=== PATIENT | male | born 1975 | race Caucasian/White ===

== ENCOUNTER 2021-07-12 14:09 | Inpatient (IN) | payer MEDICAID, SELFPAY ==
[2021-07-12] VITALS (17 sets, daily range): BP systolic 103–145; BP diastolic 55–94; PULSE 78–110; RESP 16–26; TEMP 36–37.2; O2SAT 98–100; BMI 17.2
--- NOTE | 2021-07-12 14:25 | EKG12_ITS ---
Test Reason : ALT LOC Blood Pressure : / mmHG Vent. Rate : 090 BPM Atrial Rate : 090 BPM P-R Int : 132 ms QRS Dur : 090 ms QT Int : 348 ms P-R-T Axes : 082 072 -45 degrees QTc Int : 425 ms Normal sinus rhythm Biatrial enlargement Left ventricular hypertrophy with repolarization abnormality nonspecific ST-T wave abnormality Abnormal ECG Confirmed by SG NOBLE, VINNY ([id number]), editorial director GEE HERRON ([id number]) on 07/15/2021 10:45:02 AM Referred By: SOHAIL/ANTONELLA Confirmed By:VINNY BETTENCOURT MD
[2021-07-12 14:26] LABS: Bedside Glucose > 500 mg/dL (74-106)
--- NOTE | 2021-07-12 14:28 | EDS_ITS ---
HPI <LEIGH Frost - Last Filed: 07/12/21 16:52> History of Present Illness Chief Complaint: Alt LOC Narrative Narrative: 45-year-old male with history of hypertension, diabetes, long history of multisubstance abuse. He came home to his parents house 2 days ago, patient has been using opiate injectables over the last several months. Patient was unresponsive at home, during the last day, he has been unable to eat, drink at home, both him and his stepfather, and mother are here with him to receive detox. Patient states that he is unsure when the last time he checked his sugar, he is unsure when the last time he took his insulin. Patient denies any fevers or chills. Patient states he has pain all over. [facility] <LEIGH Frost - Last Filed: 07/12/21 16:52> [facility] Medical History (Updated 07/12/21 @ 16:[address] Abran Mederos, DO) Diabetes Allergy/AdvReac Type Severity Reaction Status Date / Time No Known Allergies Allergy Verified 07/12/21 14:13 Social History Smoking Status: Current every day smoker tobacco type: cigarettes ROS <LEIGH Frost - Last Filed: 07/12/21 16:52> ROS ED ROS Narrative Constitutional: Negative for fever, chills, weight loss or gain. Positive lethargic, weakness Eyes: Negative for vision loss, vision change, double vision ENT: Negative for any hearing changes, ringing in the ears, discharge, pain Nose: Negative for any congestion, runny nose, sinus pain, allergies Throat: Negative for any sore throat, swelling, voice changes, Cardiovascular: Negative for any chest pain, tightness, palpitations, racing heartbeat Respiratory: Negative for any cough, sputum production, hemoptysis, shortness of breath, shortness of breath on exertion, Gastrointestinal: Negative for any, nausea, vomiting, diarrhea, constipation, blood in stool, blood in vomit. Positive for abdominal cramping : Negative for any urinary frequency, incontinence, dysuria, retention, blood in urine Muscle skeletal: Negative for any muscle joint pain, stiffness, arthralgias, neck pain, back pain. Positive for generalized malaise, myalgia Neurological: Negative for any headache, dizziness, syncope, numbness or tingling Skin: Negative for any rashes, lumps, itching, abrasions, lacerations Psychiatric: Negative for any depression, anxiety, stress, suicidal ideation, homicidal ideation Hematologic: Negative for any easy bruising, excessive bruising, easy bleeding Allergies: Negative for any eczema, hives, rash EXAM <LEIGH Frost - Last Filed: 07/12/21 16:52> Physical Exam Const Vital Signs: 07/12/21 14:10 07/12/21 15:46 07/12/21 16:32 Temperature 97.5 F L Temperature Source Temporal Pulse Rate 91 88 78 Respiratory Rate 16 18 18 Blood Pressure 109/55 L 107/66 Blood Pressure Mean 73 79 Pulse Ox 100 99 98 Oxygen Delivery Method Room Air Room Air Room Air Positive cachectic and unkempt General Appearance ED: unkempt and cachectic Nutritional Appearance: cachectic HEENT Reports dry mucous membranes Mouth ED: Yes dry mucous membranes Mouth: dry mucous membranes Eyes PERRL and EOMs intact bilaterally General Eye ED: Yes pale conjunctiva Neck no lymphadenopathy and supple Chest Wall inspection of chest normal and palpation of chest normal Resp normal respiratory effort and clear to auscultation bilaterally GI normal to inspection, nondistended, normoactive bowel sounds, non-tender and non-distended Auscultation: normoactive bowel sounds Palpation: soft Back/Spine no CVA tenderness Extremity normal to inspection Neuro CN's II-XII intact bilaterally Sensorium / Orientation: alert and lethargic Psych mental status grossly normal Appearance: unkempt <Dr. Abran Mederos DO - Last Filed: 07/12/21 16:26> Physical Exam Const Vital Signs: 07/12/21 14:10 07/12/21 15:46 07/12/21 16:32 Temperature 97.5 F L Temperature Source Temporal Pulse Rate 91 88 78 Respiratory Rate 16 18 18 Blood Pressure 109/55 L 107/66 Blood Pressure Mean 73 79 Pulse Ox 100 99 98 Oxygen Delivery Method Room Air Room Air Room Air MDM <LEIGH Frost - Last Filed: 07/12/21 16:52> [facility] MDM Narrative Medical decision making narrative: Patient arrives to the emergency department wanting detox from opiates, as well as lethargic. Patient upon initial examination I was able small ketones. Patient received a DKA work-up due to the patient being diabetic, not taking any insulin, and reading high on the meter. Patient's CBC shows a leukocytosis with a white blood count 26.3, patient's chemistries had multiple abnormal lab values. Patient sodium was 118, patient potassium was unremarkable. Patient's anion gap was 33 with a BUN of 127, creatinine 2.5. Patient's glucose was 1258. Patient was given 2 L of fluid, insulin drip. Patient is a to give a urine. I did speak with the hospitalist, the patient be admitted to the ICU. Patient be admitted with diabetic ketoacidosis, opiate abuse, acute kidney injury, hyponatremia. Lab Data Labs: Laboratory Results - last 24 hr 07/12/21 07/12/21 07/12/21 14:22 15:25 15:25 WBC 26.3 H RBC 4.91 Hgb 14.2 Hct 41.2 MCV 83.9 MCH 28.9 MCHC 34.5 RDW Std Deviation 40.0 RDW Coeff of Eric 13.2 Plt Count 338 MPV 10.3 Immature Gran % (Auto) 1.800 H Neut % (Auto) 84.2 H Lymph % (Auto) 7.0 L [place] % (Auto) 6.8 Eos % (Auto) 0.0 Baso % (Auto) 0.2 Absolute Neuts (auto) 22.2 H Absolute Lymphs (auto) 1.85 Nucleated RBC % 0 Differential Comment SCANNED Diff Path Review May foll Sodium 118 L* Potassium 4.5 Chloride 78 L Carbon Dioxide 7.0 L* Anion Gap 33 H BUN 127 H* Creatinine 2.51 H Estim Creat Clear Calc 26.50 Est GFR (MDRD) Af Amer 36 L Est GFR (MDRD) Non-Af 30 L BUN/Creatinine Ratio 50.6 H Glucose 1258 H* Lactic Acid Calcium 9.3 Acetone Level POC Glucose > 500 H* 07/12/21 07/12/21 15:25 15:25 WBC RBC Hgb Hct MCV MCH MCHC RDW Std Deviation RDW Coeff of Eric Plt Count MPV Immature Gran % (Auto) Neut % (Auto) Lymph % (Auto) [place] % (Auto) Eos % (Auto) Baso % (Auto) Absolute Neuts (auto) Absolute Lymphs (auto) Nucleated RBC % Differential Comment Diff Path Review Sodium Potassium Chloride Carbon Dioxide Anion Gap BUN Creatinine Estim Creat Clear Calc Est GFR (MDRD) Af Amer Est GFR (MDRD) Non-Af BUN/Creatinine Ratio Glucose Lactic Acid 2.0 Calcium Acetone Level LARGE H POC Glucose ABG Data ABG results: ABG 07/12/21 15:37 Specimen Type CESAR Sample Site Central Line VBG pH 7.06 L* VBG pO2 50 H VBG HCO3 6 L VBG Total CO2 7 L VBG O2 Sat (Calc) 69 VBG Base Excess -25 L POC Mix VBG pCO2 Pt Tmp 20.9 L O2 Delivery Device Room Air Crit Call To/Read Back Yes Blood Gas Notified Whom Marium Blood Gas Notified Time 15:38:49 Radiography Diagnostic Testing: Clinical Impression(s) from Imaging Studies Chest X-Ray 07/12/21 15:26 IMPRESSION: Right subclavian vein catheter coiled on itself at the level of the interest of the thoracic cage. Tip in the mid to distal SVC. No acute cardiopulmonary process. Electronically Signed: Yobani Atkinson MD at 16:11 EDT , Chest x-ray shows a right subclavian vein catheter coiled on itself at the level of the interest of the thoracic cage. Tip of the mid to the distal SVC. <Dr. Abran Mederos, DO - Last Filed: 07/12/21 16:26> [facility] Narrative Medical decision making narrative: I have personally performed a face to face assessment of the patient and have reviewed the INGRID Note. I performed a substantive portion of the visit including all aspects of the following. My pitts findings include: History is [patient presents to the emergency department with his mother with complaint of of not feeling well for at least a week. Patient abuses opiates via the IV route. Patient has been without his diabetic medications and has not taken them for about a week. Patient has been vomiting for some time. He denies any fever or cough or chest pain. He denies any abdominal pain.] Exam is [HEENT-PERRLA, EOMI. Cranial nerves II through XII grossly intact. TMs clear. Mucous membranes dry. No adenopathy. Cardiovascular-regular rate and rhythm without murmur or ectopy Lungs-clear to auscultation, chest wall stable without crepitus or subcu emphysema Abdomen-normoactive bowel sounds, soft, nontender, no rebound or rigidity, no peritoneal signs. Extremities-intact ?4, normal range of motion, normal pulses, atraumatic. Patient has multiple track forbes to the upper extremities.] Medical Decison Making [patient noted to be in DKA with acute kidney injury. Patient was a difficult IV stick and had to have a central line placed to the subclavian area on the right. Patient was ordered 2 L of fluid and started on an insulin drip. Case will be discussed with hospitalist evaluate patient for admission] Other additions or changes: [None] Lab Data Attestation: I reviewed the patient's lab results. Labs: Laboratory Results - last 24 hr 07/12/21 07/12/21 07/12/21 14:22 15:25 15:25 WBC 26.3 H RBC 4.91 Hgb 14.2 Hct 41.2 MCV 83.9 MCH 28.9 MCHC 34.5 RDW Std Deviation 40.0 RDW Coeff of Eric 13.2 Plt Count 338 MPV 10.3 Immature Gran % (Auto) 1.800 H Neut % (Auto) 84.2 H Lymph % (Auto) 7.0 L [place] % (Auto) 6.8 Eos % (Auto) 0.0 Baso % (Auto) 0.2 Absolute Neuts (auto) 22.2 H Absolute Lymphs (auto) 1.85 Nucleated RBC % 0 Differential Comment SCANNED Diff Path Review May foll Sodium 118 L* Potassium 4.5 Chloride 78 L Carbon Dioxide 7.0 L* Anion Gap 33 H BUN 127 H* Creatinine 2.51 H Estim Creat Clear Calc 26.50 Est GFR (MDRD) Af Amer 36 L Est GFR (MDRD) Non-Af 30 L BUN/Creatinine Ratio 50.6 H Glucose 1258 H* Lactic Acid Calcium 9.3 Acetone Level POC Glucose > 500 H* 07/12/21 07/12/21 15:25 15:25 WBC RBC Hgb Hct MCV MCH MCHC RDW Std Deviation RDW Coeff of Eric Plt Count MPV Immature Gran % (Auto) Neut % (Auto) Lymph % (Auto) [place] % (Auto) Eos % (Auto) Baso % (Auto) Absolute Neuts (auto) Absolute Lymphs (auto) Nucleated RBC % Differential Comment Diff Path Review Sodium Potassium Chloride Carbon Dioxide Anion Gap BUN Creatinine Estim Creat Clear Calc Est GFR (MDRD) Af Amer Est GFR (MDRD) Non-Af BUN/Creatinine Ratio Glucose Lactic Acid 2.0 Calcium Acetone Level LARGE H POC Glucose ABG Data ABG results: ABG 07/12/21 15:37 Specimen Type CESAR Sample Site Central Line VBG pH 7.06 L* VBG pO2 50 H VBG HCO3 6 L VBG Total CO2 7 L VBG O2 Sat (Calc) 69 VBG Base Excess -25 L POC Mix VBG pCO2 Pt Tmp 20.9 L O2 Delivery Device Room Air Crit Call To/Read Back Yes Blood Gas Notified Whom Marium Blood Gas Notified Time 15:38:49 Radiography Chest X-Ray - ED: 1 View Diagnostic Testing: Clinical Impression(s) from Imaging Studies Chest X-Ray 07/12/21 15:26 IMPRESSION: Right subclavian vein catheter coiled on itself at the level of the interest of the thoracic cage. Tip in the mid to distal SVC. No acute cardiopulmonary process. Electronically Signed: Yobani Atkinson MD at 16:11 EDT , 1 view chest x-ray obtained interpreted by myself as central line placement in good position in the superior vena cava without evidence of pneumothorax. Radiology agreed. <Dr. Abran Mederos, DO - Last Filed: 07/12/21 16:26> Other Procedures Procedure(s): Central line placement-initially attempted central line placement to the right groin however unable to advance the wire into the vein despite several attempts. Decision was made then to place a subclavian line. Area of the right subclavian was sterilely draped and prepped. Area cleansed with chlorhexidine prep. Area anesthetized with 1% lidocaine total of 4 cc. Needle was advanced into the right subclavian with good blood return. I was able to pass the guidewire through the needle and removed the needle. A small skin sandy was made with an 11 blade and dilator was used to dilate the subcutaneous tissues. The central line was then passed into the subclavian. Line was sutured in the place. All ports were flushed with heparin and good return all ports. Chest x-ray was obtained and showed good position of the central line in the superior vena cava and incidentally was noted a curling of the initial portion of the central line. <Dr. Abran Mederos, DO - Last Filed: 07/12/21 16:26> Critical Care Time Critical care time (excluding procedures): Including time spent:, Discussing w/Patient &/or Family/Remote Broadcast Engineer, Discussing w/Consultants, Arranging Admission or Transfer, Performing Direct Patient Care at Bedside and - (45 minutes) Discharge Plan Dx/Rx/DC Orders Clinical Impression: DKA (diabetic ketoacidosis), Acute kidney injury, Dehydration, Opiate abuse, continuous Disposition Disposition: Acute Care [facility]
--- NOTE | 2021-07-12 15:26 | RAD_ITS ---
STUDY: X-RAY CHEST REASON FOR EXAM: Male, 45 years old. shortness of breath TECHNIQUE: 1 view COMPARISON: None. FINDINGS: Right-sided subclavian vein catheter appears coiled on itself at the level of the entrance to the thoracic cage. Tip in the mid to distal SVC. Cardiomediastinal silhouette is unremarkable. Costophrenic angles are sharp. Lungs are clear. The trachea is midline. There is no pneumothorax. The bones are grossly intact. RAD/CXR for Line Placement IMPRESSION: Right subclavian vein catheter coiled on itself at the level of the interest of the thoracic cage. Tip in the mid to distal SVC. No acute cardiopulmonary process. Electronically Signed: Yobani Atkinson MD at 16:11 EDT ,
[2021-07-12] MEDS: 0.9% Normal Saline 1,000 ML 999 ML IV ×3 (15:38→17:23)
[2021-07-12 15:46] LABS: Blood Gas Specimen Type VEN; O2 Delivery Device Room Air; SITE Central Line; VBG BASE EXCESS -25 mmol/L (-1.0-3.5); VBG Bicarbonate 6 mmol/L (22-26); VBG PO2 50 mmHg (25-40); VBG SO2 69 % (50-70); VBG TCO2 7 mmol/L (23-33); VBG pCO2 20.9 mmHg (41-51); VBG pH 7.06 (7.32-7.42)
[2021-07-12 15:46] LABS: Absolute Lymphocyte Count 1.85 X10^3/uL (0.83-4.51); Absolute Neutrophil Count 22.2 X10^3/uL (2.0-7.7); Basophil# 0.06 X10^3/uL; Basophil% 0.2 % (0-1); Hematocrit 41.2 % (40-54); Hemoglobin 14.2 g/dL (13.0-16.5); Lymphocyte # 1.85 X10^3/ul (0.83-4.51); Mean Corp Hgb Conc 34.5 g/dL (32-36); Mean Corpuscular Hgb 28.9 pg (27.0-32.0); Mean Corpuscular Volume 83.9 fL (80-94); Mean Platelet Vol. 10.3 fl (6.2-12.0); Monocyte# 1.78 X10^3/uL; Monocyte% 6.8 % (0-10); NRBC Flagged by Analyzer 0 % (0-5); Neutrophil # 22.17 X10^3/uL (2.7-7.7); Neutrophil % 84.2 % (47-70); POSITIVE DIFFERENTIAL YES; Platelet Count 338 K/mm3 (150-450); RBC Distribution Width CV 13.2 % (11.6-14.6); Red Blood Count 4.91 M/mm3 (4.6-6.2); White Blood Count 26.3 K/mm3 (4.4-11.0)
[2021-07-12 15:50] LABS: Differential Indicated SCAN CRITERIA MET
[2021-07-12 16:08] LABS: Anion Gap 33 (5-15); BUN 127 mg/dL (7-18); BUN/Creat Ratio 50.6 RATIO (10-20); Calcium,Total 9.3 mg/dL (8.5-10.1); Chloride 78 mmol/L (98-107); Creatinine, Serum 2.51 mg/dL (0.70-1.30); EST Glomerular Filtration Rate 30 mL/min (>60); Est Glom Filt Rate - Afr Amer 36 mL/min (>60); Glucose 1258 mg/dL (74-106); Potassium 4.5 mmol/L (3.5-5.1); Sodium Level 118 mmol/L (136-145)
[2021-07-12 16:22] LABS: Differential Comment SCANNED
--- NOTE | 2021-07-12 16:45 | ED.RN ---
Nuha, Charge Nurse at bedside to attempt for peripheral IV. Nuha was unsuccessful x2 due to patients hx of IV drug use. MD Gatito at bedside attempt for IJ placement was also unsuccessful x2 attempts. Central line insertion tray set up for Dr. Mederos. Verbal consent obtain from patient prior to procedure.
--- NOTE | 2021-07-12 16:48 | PCM.HP.STD ---
HPI - General General Date of Admission: 07/12/21 Date of Service: 07/12/21 Chief Complaint: unresponsive HPI Narrative ROBSON MORE, is a 45 M who presents presents after being unresponsive. Patient went to his parents home and has not been able to eat or drink and patient presented to the emergency room. Patient was found to be in diabetic ketoacidosis with a glucose of 1258, anion gap of 33, carbon dioxide of 7. Creatinine was elevated 2.71 and sodium was down to 118. Patient was started on insulin drip time the time of my arrival. Patient is a poor historian states that he has not taken his insulin for days. He states that he is a type I diabetic but had some hesitancy in regards to answering that. Patient's mother is at bedside and she states that he was never diabetic is a child living with her. Patient uses heroin and fentanyl and shoots up. His last use was a couple days ago. He is requesting detoxification. [facility] Medical History (Updated 07/12/21 @ 16:[address] Jose Ramon Hunt DO) Diabetes Diabetes mellitus type 1 Hepatitis C HTN (hypertension) Opiate abuse, continuous Allergy/AdvReac Type Severity Reaction Status Date / Time No Known Allergies Allergy Verified 07/12/21 14:13 Family History (Updated 07/12/21 @ 16:[address] Jose Ramon Hunt DO) Other Diabetes Social History (Updated 07/12/21 @ 16:[address] Jose Ramon Hunt DO) Smoking Status: Current every day smoker tobacco type: cigarettes substance use type: marijuana and heroin ROS ROS Narrative Nausea, vomiting. Decreased oral intake. Weight loss but unclear quantity of weight. Lesions on skin from injection sites. All review of systems were negative except as mentioned above in the history of present illness and the other review of systems. Vital Signs Vital Signs Vital Signs: 07/12/21 14:10 07/12/21 15:46 07/12/21 16:32 Temperature 36.4 C L Temperature Source Temporal Pulse Rate 91 88 78 Respiratory Rate 16 18 18 Blood Pressure 109/55 L 107/66 Blood Pressure Mean 73 79 Pulse Ox 100 99 98 Oxygen Delivery Method Room Air Room Air Room Air Weight Weight: 49.895 kg Body Mass Index (BMI) 17.2 Physical Exam Const Constitutional Narrative: Awake and alert. Does have some slurred speech which made it difficult to understand at times. Gaunt appearance HEENT HEENT Narrative: Temporal wasting. Mucous membranes dry. Neck no lymphadenopathy Resp normal respiratory effort, no retractions, no use of accessory muscles and clear to auscultation bilaterally Cardio regular rate, regular rhythm, S1 normal heart sound and S2 normal heart sound GI normal to inspection, nondistended, normoactive bowel sounds, soft to palpation, non-tender, non-distended and hepatosplenomegaly Extremity normal to inspection Extremity Narrative: Muscle wasting lower extremities. Skin no rashes or lesions noted Neuro Sensorium / Orientation: awake and alert Psych affect normal Results Lab / Micro Data Result Diagrams: 07/12/21 15:25 07/12/21 15:25 Labs: Laboratory Results - last 24 hr 07/12/21 14:22: POC Glucose > 500 H* 07/12/21 15:25: WBC 26.3 H, RBC 4.91, Hgb 14.2, Hct 41.2, MCV 83.9, MCH 28.9, MCHC 34.5, RDW Std Deviation 40.0, RDW Coeff of Eric 13.2, Plt Count 338, MPV 10.3, Immature Gran % (Auto) 1.800 H, Neut % (Auto) 84.2 H, Lymph % (Auto) 7.0 L, [place] % (Auto) 6.8, Eos % (Auto) 0.0, Baso % (Auto) 0.2, Absolute Neuts (auto) 22.2 H, Absolute Lymphs (auto) 1.85, Nucleated RBC % 0, Differential Comment SCANNED, Diff Path Review August foll 07/12/21 15:25: Sodium 118 L*, Potassium 4.5, Chloride 78 L, Carbon Dioxide 7.0 L*, Anion Gap 33 H, BUN 127 H*, Creatinine 2.51 H, Estim Creat Clear Calc 26.50, Est GFR (MDRD) Af Amer 36 L, Est GFR (MDRD) Non-Af 30 L, BUN/Creatinine Ratio 50.6 H, Glucose 1258 H*, Calcium 9.3 07/12/21 15:25: Acetone Level LARGE H 07/12/21 15:25: Lactic Acid 2.0 ABG Data ABG results: ABG 07/12/21 15:37 Specimen Type CESAR Sample Site Central Line VBG pH 7.06 L* VBG pO2 50 H VBG HCO3 6 L VBG Total CO2 7 L VBG O2 Sat (Calc) 69 VBG Base Excess -25 L POC Mix VBG pCO2 Pt Tmp 20.9 L O2 Delivery Device Room Air Crit Call To/Read Back Yes Blood Gas Notified Whom Marium Blood Gas Notified Time 15:38:49 EKG Initial EKG: Attestation: I personally reviewed and interpreted this EKG as follows: Prior EKG tracings: available for review EKG Rhythm Intrepretation: Sinus Rhythm Radiology Impression Chest X-Ray 07/12/21 15:26 IMPRESSION: Right subclavian vein catheter coiled on itself at the level of the interest of the thoracic cage. Tip in the mid to distal SVC. No acute cardiopulmonary process. Electronically Signed: Yobani Atkinson MD at 16:11 EDT , Assessment & Plan Assessment/Plan (1) DKA (diabetic ketoacidosis): QUALIFIERS: Diabetes mellitus type: type 1 Diabetes mellitus complication detail: without coma Qualified Code(s): E10.10 - Type 1 diabetes mellitus with ketoacidosis without coma (2) Acute kidney injury: (3) Hyponatremia: (4) Leukocytosis: QUALIFIERS: Leukocytosis type: unspecified Qualified Code(s): D72.829 - Elevated white blood cell count, unspecified (5) Opiate withdrawal: PLAN: 1. Diabetic ketoacidosis Patient reports as being a type I diabetic but he is not the most reliable historian at this time. To diabetic but does take insulin. Patient has not taken insulin for unclear period of time. Patient will be on insulin drip as well as IV fluids. NPO. Serial BMPs. Discontinue the insulin drip once anion gap is been closed x2. 2. Acute kidney injury Likely prerenal IV fluids Avoid nephrotoxic agents. 3. Leukocytosis May be reactive due to DKA as well opiate withdrawal Monitor No sign of infection We will check urinalysis and urine culture 4. Hyponatremia Likely pseudohyponatremia due to severe hyperglycemia Treat the underlying process and monitor. 5. Acute opiate withdrawal Patient is requesting opiate withdrawal treatment. Patient has been established with a program called [facility] by [facility], where he is from Patient's mother states that he will not be returning to their once he is discharged. Enforced the patient denies any active participant in regards to obtaining sobriety. Going to programs for discharge. 6. VTE prophylaxis with enoxaparin 7. COVID-19 vaccination status: Patient is unvaccinated 12 patient decides, could have the vaccine while he is here but let us know. Discussed with the patient's mother and stepfather at bedside with the patient's permission. All question questions were answered. Charges/Coding Visit Charges Inpatient E&M: 14743 Init Hosp L3
[2021-07-12 17:01] LABS: Magnesium 3.4 mg/dL (1.6-2.6)
[2021-07-12 18:04] LABS: Anion Gap 24 (5-15); BUN 109 mg/dL (7-18); Calcium,Total 8.7 mg/dL (8.5-10.1); Chloride 93 mmol/L (98-107); Creatinine, Serum 2.27 mg/dL (0.70-1.30); EST Glomerular Filtration Rate 33 mL/min (>60); Est Glom Filt Rate - Afr Amer 40 mL/min (>60); Estimated Creatinine Clearance 32.24 ml/min; Glucose 940 mg/dL (74-106); Potassium 3.5 mmol/L (3.5-5.1); Sodium Level 128 mmol/L (136-145)
[2021-07-12] MEDS: 0.9% Normal Saline 1,000 ML 500 ML IV (18:33)
[2021-07-12 19:06] LABS: Bedside Glucose > 500 mg/dL (74-106)
[2021-07-12 19:35] LABS: Reflex Lactate? Y
[2021-07-12 20:38] LABS: Glucose 664 mg/dL (74-106)
[2021-07-12] MEDS: Ondansetron 4 MG/2 ML Vial IV (20:39)
[2021-07-12 20:41] LABS: Lactic Acid 1.6 mmol/L (0.4-1.9)
[2021-07-12 21:14] LABS: Glucose 734 mg/dL (74-106)
[2021-07-12 21:21] LABS: Bedside Glucose > 500 mg/dL (74-106)
[2021-07-12 21:21] LABS: Bedside Glucose > 500 mg/dL (74-106)
[2021-07-12 21:21] LABS: Bedside Glucose > 500 mg/dL (74-106)
[2021-07-12 21:39] LABS: Anion Gap 18 (5-15); BUN 93 mg/dL (7-18); Calcium,Total 8.3 mg/dL (8.5-10.1); Chloride 103 mmol/L (98-107); Creatinine, Serum 1.69 mg/dL (0.70-1.30); EST Glomerular Filtration Rate 47 mL/min (>60); Est Glom Filt Rate - Afr Amer 57 mL/min (>60); Glucose 619 mg/dL (74-106); Potassium 3.4 mmol/L (3.5-5.1); Sodium Level 135 mmol/L (136-145)
[2021-07-12] MEDS: Potassium Chloride 40 MEQ in 0.45% Normal Saline 1,000 ML 250 MEQ IV (22:35)
[2021-07-13] VITALS (21 sets, daily range): BP systolic 121–152; BP diastolic 78–113; PULSE 86–124; RESP 18–35; TEMP 36.4–37.2; O2SAT 97–100
[2021-07-13 01:24] LABS: Anion Gap 15 (5-15); BUN 86 mg/dL (7-18); BUN/Creat Ratio 57.7 RATIO (10-20); Calcium,Total 8.6 mg/dL (8.5-10.1); Chloride 107 mmol/L (98-107); Creatinine, Serum 1.49 mg/dL (0.70-1.30); EST Glomerular Filtration Rate 54 mL/min (>60); Est Glom Filt Rate - Afr Amer 66 mL/min (>60); Estimated Creatinine Clearance 49.11 ml/min; Glucose 559 mg/dL (74-106); Potassium 3.8 mmol/L (3.5-5.1); Sodium Level 138 mmol/L (136-145)
[2021-07-13 02:16] LABS: Bedside Glucose > 500 mg/dL (74-106)
[2021-07-13 02:16] LABS: Bedside Glucose 484 mg/dL (74-106)
[2021-07-13 02:16] LABS: Bedside Glucose > 500 mg/dL (74-106)
[2021-07-13] MEDS: Haloperidol Lactate 5 MG/ML Vial 2 MG IV (02:24)
[2021-07-13] MEDS: Potassium Chloride 40 MEQ in 0.45% Normal Saline 1,000 ML 250 MEQ IV ×2 (02:37→07:37)
[2021-07-13 05:01] LABS: Anion Gap 11 (5-15); BUN 81 mg/dL (7-18); BUN/Creat Ratio 61.8 RATIO (10-20); Calcium,Total 8.3 mg/dL (8.5-10.1); Chloride 112 mmol/L (98-107); Creatinine, Serum 1.31 mg/dL (0.70-1.30); EST Glomerular Filtration Rate 63 mL/min (>60); Est Glom Filt Rate - Afr Amer 76 mL/min (>60); Estimated Creatinine Clearance 55.86 ml/min; Glucose 449 mg/dL (74-106); Potassium 3.8 mmol/L (3.5-5.1); Sodium Level 139 mmol/L (136-145)
--- NOTE | 2021-07-13 07:17 | PN.HOSP_ITS ---
Subjective Subjective Follow-up for DKA and acute opioid withdrawal syndrome The patient is drowsy and lethargy. He talks in low pitched voice. Complains of nonspecific mild pain. Objective Data Objective Data Vital Signs: Vital Signs Temp Pulse Resp BP Pulse Ox 98 F 109 H 28 H 138/88 H 100 07/13/21 03:00 07/13/21 07:00 07/13/21 07:00 07/13/21 07:00 07/13/21 07:00 Oxygen Delivery Method Room Air Weight: 123 lb 14.4 oz Body Mass Index (BMI) 17.2 Intake & Output: Intake and Output for Last 24 Hours 07/11/21 07/12/21 07/13/21 23:59 23:59 23:59 Intake Total 4021.13 / 4021.13 1027.05 / 1027.05 Balance 4021.13 / 4021.13 1027.05 / 1027.05 Lab / Micro Data Result Diagrams: 07/12/21 15:25 07/13/21 09:20 Labs: Laboratory Results - last 24 hr 07/12/21 14:22: POC Glucose > 500 H* 07/12/21 15:25: WBC 26.3 H, RBC 4.91, Hgb 14.2, Hct 41.2, MCV 83.9, MCH 28.9, MCHC 34.5, RDW Std Deviation 40.0, RDW Coeff of Eric 13.2, Plt Count 338, MPV 10.3, Immature Gran % (Auto) 1.800 H, Neut % (Auto) 84.2 H, Lymph % (Auto) 7.0 L , [place] % (Auto) 6.8, Eos % (Auto) 0.0, Baso % (Auto) 0.2, Absolute Neuts (auto) 22.2 H, Absolute Lymphs (auto) 1.85, Nucleated RBC % 0, Differential Comment SCANNED, Diff Path Review August07/12/21 15:25: Sodium 118 L*, Potassium 4.5, Chloride 78 L, Carbon Dioxide 7.0 L*, Anion Gap 33 H, BUN 127 H*, Creatinine 2.51 H, Estim Creat Clear Calc 26.50, Est GFR (MDRD) Af Amer 36 L, Est GFR (MDRD) Non-Af 30 L, BUN/Creatinine Ratio 50.6 H, Glucose 1258 H*, Calcium 9.3 07/12/21 15:25: Acetone Level LARGE H 07/12/21 15:25: Lactic Acid 2.0 07/12/21 15:25: Magnesium 3.4 H 07/12/21 17:20: POC Glucose > 500 H* 07/12/21 17:25: Sodium 128 L, Potassium 3.5, Chloride 93 L, Carbon Dioxide 11.0 L, Anion Gap 24 H, BUN 109 H*, Creatinine 2.27 H, Estim Creat Clear Calc 32.24, Est GFR (MDRD) Af Amer 40 L, Est GFR (MDRD) Non-Af 33 L, BUN/Creatinine Ratio 48.0 H, Glucose 940 H*, Calcium 8.7 07/12/21 19:01: POC Glucose > 500 H* 07/12/21 19:05: Glucose 734 H* 07/12/21 20:08: Lactic Acid 1.6 07/12/21 20:08: Glucose 664 H* 07/12/21 20:08: POC Glucose > 500 H* 07/12/21 21:07: Sodium 135 L, Potassium 3.4 L, Chloride 103, Carbon Dioxide 14.0 L, Anion Gap 18 H, BUN 93 H, Creatinine 1.69 H, Estim Creat Clear Calc 43.30, Est GFR (MDRD) Af Amer 57 L, Est GFR (MDRD) Non-Af 47 L, BUN/Creatinine Ratio 55.0 H, Glucose 619 H*, Calcium 8.3 L 07/12/21 21:07: POC Glucose > 500 H* 07/12/21 22:13: POC Glucose > 500 H* 07/12/21 23:07: POC Glucose > 500 H* 07/13/21 00:20: POC Glucose 484 H* 07/13/21 01:00: Sodium 138, Potassium 3.8, Chloride 107, Carbon Dioxide 16.0 L, Anion Gap 15, BUN 86 H, Creatinine 1.49 H, Estim Creat Clear Calc 49.11, Est GFR (MDRD) Af Amer 66, Est GFR (MDRD) Non-Af 54 L, BUN/Creatinine Ratio 57.7 H, Glucose 559 H*, Calcium 8.6 07/13/21 04:30: Sodium 139, Potassium 3.8, Chloride 112 H, Carbon Dioxide 16.0 L , Anion Gap 11, BUN 81 H, Creatinine 1.31 H, Estim Creat Clear Calc 55.86, Est GFR (MDRD) Af Amer 76, Est GFR (MDRD) Non-Af 63, BUN/Creatinine Ratio 61.8 H, Glucose 449 H, Calcium 8.3 L ABG Data ABG results: ABG 07/12/21 15:37 Specimen Type CESAR Sample Site Central Line VBG pH 7.06 L* VBG pO2 50 H VBG HCO3 6 L VBG Total CO2 7 L VBG O2 Sat (Calc) 69 VBG Base Excess -25 L POC Mix VBG pCO2 Pt Tmp 20.9 L O2 Delivery Device Room Air Crit Call To/Read Back Yes Blood Gas Notified Whom Marium Blood Gas Notified Time 15:38:49 Radiography Diagnostic Testing: Radiology Impression Chest X-Ray 07/12/21 15:26 IMPRESSION: Right subclavian vein catheter coiled on itself at the level of the interest of the thoracic cage. Tip in the mid to distal SVC. No acute cardiopulmonary process. Electronically Signed: Yobani Atkinson MD at 16:11 EDT , Physical Exam Narrative Patient has history of IVDA, last dose before admission. General: Mild drowsy, lethargy, disoriented to time and place, Cooperative, thin looking HEENT: Atraumatic, PERRLA, EOMI, Normocephalic Oral: No Gingival or Mucosal Lesions/ Ulcerations Neck: Supple, No JVD, Negative Carotid Bruits Lungs: Air entry diminished in bilateral lung bases. No crepitation/rhonchi Cardiovascular: Regular rate, Regular Rhythm, Normal S1, Normal S2, No murmurs Abdomen: Bowel Sounds Present, Soft, Non Tender, Non-Distended : No renal angle tenderness. No suprapubic tenderness. Extremities: Negative track forbes with thickening, induration and hardening of skin over both cubital fossa. No edema, Capillary Refill Less than 3 Seconds Skin: Needle track forbes, superficial thrombophlebitis over cubital region Musculoskeletal: No Tenderness to Palpation of Joints or Extremities Neurological: Cranial nerves II-XII grossly intact, DTR 2+/4 and Symmetrical, Neuro grossly intact Psych/Mental Status: Flat affect. Assessment & Plan Assessment/Plan (1) DKA (diabetic ketoacidosis): QUALIFIERS: Diabetes mellitus complication detail: without coma Diabetes mellitus type: type 1 Qualified Code(s): E10.10 - Type 1 diabetes me llitus with ketoacidosis without coma (2) Acute kidney injury: (3) Hyponatremia: (4) Leukocytosis: QUALIFIERS: Leukocytosis type: unspecified Qualified Code(s): D72.829 - Elevated white blood cell count, unspecified (5) Opiate withdrawal: PLAN: 1. Diabetic ketoacidosis with history of type 1 diabetes mellitus: Patient is being admitted in ICU. Currently on insulin drip. Patient reports as being a type I diabetic but he is not the most reliable historian at this time. To diabetic but does take insulin. Patient has not taken insulin for unclear period of time. Patient will be on insulin drip as well as IV fluids. NPO. Serial BMPs. Discontinue the insulin drip once anion gap is been closed x2. Serum bicarb is still low at 15. 2. Acute kidney injury most likely prerenal from DKA: Continue IV fluid half- normal saline. Avoid nephrotoxic medications. 3. Leukocytosis, may be reactive to DKA and opioid withdrawal. No fever. No clinical symptoms and signs of infection. 4. Hyponatremia from severe hyperglycemia: Most recent sodium is 142. Corrected. 5. Acute opiate withdrawal with history of chronic IVDA/opioid use: Patient is on phenobarbitone. Patient has been established with a program called [facility] by [facility], [place] he is from. Consult case specialist 6. VTE prophylaxis with enoxaparin 7. COVID-19 vaccination status: Patient is unvaccinated. Charges/Coding Visit Charges Inpatient E&M: 70213 Subs Hosp L3
--- NOTE | 2021-07-13 07:22 | NURSING ---
documentation by Soledad Garcia RN reviewed and agree with charting
[2021-07-13 07:41] LABS: Bedside Glucose > 500 mg/dL (74-106)
[2021-07-13 07:41] LABS: Bedside Glucose 445 mg/dL (74-106)
[2021-07-13 07:41] LABS: Bedside Glucose 438 mg/dL (74-106)
[2021-07-13 07:41] LABS: Bedside Glucose 426 mg/dL (74-106)
[2021-07-13 07:41] LABS: Bedside Glucose 414 mg/dL (74-106)
[2021-07-13 09:26] LABS: Bedside Glucose 372 mg/dL (74-106)
[2021-07-13 09:26] LABS: Bedside Glucose 358 mg/dL (74-106)
[2021-07-13 09:26] LABS: Bedside Glucose 345 mg/dL (74-106)
[2021-07-13 09:50] LABS: Anion Gap 11 (5-15); BUN 66 mg/dL (7-18); Calcium,Total 8.6 mg/dL (8.5-10.1); Chloride 116 mmol/L (98-107); EST Glomerular Filtration Rate 77 mL/min (>60); Est Glom Filt Rate - Afr Amer 93 mL/min (>60); Estimated Creatinine Clearance 68.12 ml/min; Glucose 346 mg/dL (74-106); Sodium Level 142 mmol/L (136-145)
[2021-07-13] MEDS: Enoxaparin 40 MG/0.4 ML Syringe SC (10:39)
[2021-07-13] MEDS: 0.45% Normal Saline 1,000 ML 125 ML IV ×2 (10:39→19:53)
[2021-07-13 11:31] LABS: Bedside Glucose 287 mg/dL (74-106)
[2021-07-13 11:31] LABS: Bedside Glucose 288 mg/dL (74-106)
[2021-07-13] MEDS: Insulin Glargine-YFGN 100 UNIT/ML Pen 15 UNIT SC ×2 (12:21→22:44)
[2021-07-13 12:44] LABS: Pathologist Review Reviewed
[2021-07-13 13:31] LABS: Bedside Glucose 254 mg/dL (74-106)
[2021-07-13 13:31] LABS: Bedside Glucose 299 mg/dL (74-106)
[2021-07-13 14:36] LABS: Bedside Glucose 287 mg/dL (74-106)
--- NOTE | 2021-07-13 15:30 | CASEMGMT ---
ADRIAN LU Face to Face with patient for initial transition planning/care coordination assessment. ADRIAN LU introduced self and role at [facility]. Patient lying in bed, oriented but slightly drowsy. Patient willing to participate in assessment and is able to answer most questions appropriately. Care providers, pharmacy, and demographics verified. Patient wishes to discharge home, denies need for home health at this time. Patient states he has no further needs or concerns at this time. Patient gave permission to call mother, Aminata, to clarify information. ADRIAN LU called mother, no answer, voice message left with return information. CM to follow for discharge planning needs that may arise. PCP: Patient could not recall name of PCP Specialists: none [facility]erred [facility]acy[facility] Insurance: [employer] Prescription Benefit: Yes Living Will/HPOA: none LNOK: mother Living Arrangements: Patient states he lives with mother in a 2 story home. Patient states he is independent at home and able to ambulate stairs. Transportation: self, mother DME/HHC: Patient states he has glucometer, testing supplies, insulin, and needles. Patient states he is not checking his blood sugar as he should. Patient states he smokes 1/2 PPD of cigarettes. Patient denies alcohol or other drug use. Disposition Plan: TBD Rebekah SHORT, RN, CM
[2021-07-13 16:31] LABS: Bedside Glucose 246 mg/dL (74-106)
[2021-07-13] MEDS: Insulin Lispro 100 UNIT/ML INSULN.PEN 10 UNIT SC (16:33)
[2021-07-13] MEDS: Insulin Lispro 100 UNIT/ML INSULN.PEN SC ×2 (16:33→22:43)
[2021-07-13 23:05] LABS: Bedside Glucose 242 mg/dL (74-106)
[2021-07-13 23:08] LABS: Mucous, Urine 0 SEEN /hpf (<or=2+); Red Blood Cells-Urine 0 SEEN /hpf (0-5)
--- NOTE | 2021-07-13 23:08 | NURSING ---
PT ST CATHED TO OBTAIN ORDERED SAMPLES. 800ML URINE DRAINED. PT TOLERATED WELL.
[2021-07-13 23:15] LABS: Color, Urine Yellow (Yellow); Glucose, Dipstick 1000 mg/dl (Normal); Ketone-Dipstick 50 mg/dl (Negative); Leukocyte Esterase-Dipstick Negative /ul (Negative); Nitrite-Dipstick Negative (Negative); Occult Blood-Urine Negative /ul (Negative); Protein-Dipstick 30 mg/dl (Negative); Specific Gravity, Urine 1.015 (1.002-1.030); Urine Bilirubin Dipstick Negative (Negative); Urine Clarity Clear (Clear); Urine Urobilinogen Normal (Normal)
[2021-07-13 23:22] LABS: Squamous Epithelial Cells - UA 0-5 SEEN /hpf (0-5)
[2021-07-13 23:23] LABS: Amorphous Sediment 1+ URATE; Bacteria RARE /hpf (None Seen); White Blood Cells 0-5 SEEN /hpf (0-5)
[2021-07-14 00:14] LABS: Amphetamine Urine VISTA NEGATIVE (<1000 ng/mL); Barbiturate Urine VISTA NEGATIVE (< 200 ng/mL); Benzodiazepine Urine VISTA NEGATIVE (< 200 ng/mL); Cocaine Urine VISTA NEGATIVE (< 300 ng/mL); Ecstacy Urine VISTA NEGATIVE (< 500 ng/mL); Methadone Urine VISTA NEGATIVE (< 300 ng/mL); PCP Urine VISTA NEGATIVE (< 25 ng/mL); THC Urine VISTA NEGATIVE (< 50 ng/mL); Vista UDS pH Range 6
[2021-07-14 02:15] VITALS: BP 144/75; PULSE 83; RESP 18; TEMP 36.4; O2SAT 100
[2021-07-14 05:47] LABS: Absolute Lymphocyte Count 1.75 X10^3/uL (0.83-4.51); Absolute Neutrophil Count 9.2 X10^3/uL (2.0-7.7); Basophil# 0.02 X10^3/uL; Basophil% 0.2 % (0-1); Eosinophil# 0.04 X10^3/uL; Eosinophils% 0.3 % (0-5); Hematocrit 29.5 % (40-54); Lymphocyte # 1.75 X10^3/ul (0.83-4.51); Lymphocyte % 14.6 % (19-41); Mean Corp Hgb Conc 37.3 g/dL (32-36); Mean Corpuscular Hgb 28.7 pg (27.0-32.0); Mean Platelet Vol. 9.7 fl (6.2-12.0); Monocyte# 0.95 X10^3/uL; Monocyte% 7.9 % (0-10); NRBC Flagged by Analyzer 0 % (0-5); Neutrophil # 9.16 X10^3/uL (2.7-7.7); Neutrophil % 76.5 % (47-70); Platelet Count 132 K/mm3 (150-450); RBC Distribution Width CV 13.8 % (11.6-14.6); RBC Distribution Width SD 38.1 fl (35.1-43.9); Red Blood Count 3.83 M/mm3 (4.6-6.2)
[2021-07-14 06:01] LABS: Anion Gap 11 (5-15); BUN 35 mg/dL (7-18); BUN/Creat Ratio 62.9 RATIO (10-20); Calcium,Total 8.2 mg/dL (8.5-10.1); Chloride 112 mmol/L (98-107); Creatinine, Serum 0.56 mg/dL (0.70-1.30); EST Glomerular Filtration Rate 169 mL/min (>60); Est Glom Filt Rate - Afr Amer 205 mL/min (>60); Glucose 244 mg/dL (74-106); Magnesium 1.9 mg/dL (1.6-2.6); Phosphorus 1.6 mg/dL (2.5-4.9); Potassium 3.1 mmol/L (3.5-5.1); Sodium Level 139 mmol/L (136-145)
--- NOTE | 2021-07-14 07:21 | PCM.PN.HOSP ---
Subjective Subjective Follow-up for acute opioid withdrawal syndrome. The patient is very drowsy and lethargic. He is having auditory and visual hallucinations. Generalized aches and pain. Confused. Low pitched voice Objective Data Objective Data Vital Signs: Vital Signs Temp Pulse Resp BP Pulse Ox 97.5 F L 83 18 144/75 H 100 07/14/21 02:15 07/14/21 02:15 07/14/21 02:15 07/14/21 02:15 07/14/21 02:15 Oxygen Delivery Method Room Air Weight: 127 lb 13.89 oz Body Mass Index (BMI) 17.2 Intake & Output: Intake and Output for Last 24 Hours 07/12/21 07/13/21 07/14/21 23:59 23:59 23:59 Intake Total 4021.13 / 4021.13 3969.66 / 3969.66 1000 / 1000 Output Total 800 / 800 Balance 4021.13 / 4021.13 3169.66 / 3169.66 1000 / 1000 Lab / Micro Data Result Diagrams: 07/14/21 05:30 07/14/21 05:30 Labs: Laboratory Results - last 24 hr 07/12/21 15:25: Diff Path Review Reviewed 07/13/21 02:14: POC Glucose > 500 H* 07/13/21 03:39: POC Glucose 438 H 07/13/21 04:29: POC Glucose 426 H 07/13/21 05:39: POC Glucose 445 H 07/13/21 06:34: POC Glucose 414 H 07/13/21 07:35: POC Glucose 372 H 07/13/21 08:32: POC Glucose 358 H 07/13/21 09:19: POC Glucose 345 H 07/13/21 09:20: Sodium 142, Potassium 4.0, Chloride 116 H, Carbon Dioxide 15.0 L, Anion Gap 11, BUN 66 H, Creatinine 1.10, Estim Creat Clear Calc 68.12, Est GFR (MDRD) Af Amer 93, Est GFR (MDRD) Non-Af 77, BUN/Creatinine Ratio 60.0 H, Glucose 346 H, Calcium 8.6 07/13/21 10:31: POC Glucose 288 H 07/13/21 11:26: POC Glucose 287 H 07/13/21 12:20: POC Glucose 299 H 07/13/21 13:27: POC Glucose 254 H 07/13/21 14:31: POC Glucose 287 H 07/13/21 16:05: POC Glucose 246 H 07/13/21 22:40: POC Glucose 242 H 07/13/21 23:00: Urine Opiates Screen NEGATIVE, Urine Methadone Screen NEGATIVE, Ur Barbiturates Screen NEGATIVE, Ur Phencyclidine Scrn NEGATIVE, Ur Amphetamines Screen NEGATIVE, MDMA (Ecstasy) Screen NEGATIVE, U Benzodiazepines Scrn NEGATIVE, Urine Cocaine Screen NEGATIVE, U Cannabinoids Screen NEGATIVE, Ur Drug Screen Comment 07/13/21 23:00: Urine Color Yellow, Urine Clarity Clear, Urine pH 6.0, Ur Specific Stuart 1.015, Urine Protein 30 H, Urine Glucose (UA) 1000 H, Urine Ketones 50 H, Urine Occult Blood Negative, Urine Nitrite Negative, Urine Bilirubin Negative, Urine Urobilinogen Normal, Ur Leukocyte Esterase Negative, Urine RBC 0 SEEN, Urine WBC 0-5 SEEN, Ur Squamous Epith Cells 0-5 SEEN, Amorphous Sediment 1+ URATE, Urine Bacteria RARE, Urine Mucus 0 SEEN 07/14/21 05:30: Sodium 139, Potassium 3.1 L, Chloride 112 H, Carbon Dioxide 16.0 L, Anion Gap 11, BUN 35 H, Creatinine 0.56 L, Estim Creat Clear Calc 138.10, Est GFR (MDRD) Af Amer 205, Est GFR (MDRD) Non-Af 169, BUN/Creatinine Ratio 62.9 H, Glucose 244 H, Calcium 8.2 L, Phosphorus 1.6 L, Magnesium 1.9 07/14/21 05:30: WBC 12.0 H, RBC 3.83 L, Hgb 11.0 L, Hct 29.5 L, MCV 77.0 L D, MCH 28.7, MCHC 37.3 H D, RDW Std Deviation 38.1, RDW Coeff of Eric 13.8, Plt Count 132 L, MPV 9.7, Immature Gran % (Auto) 0.500, Neut % (Auto) 76.5 H, Lymph % (Auto) 14.6 L, [place] % (Auto) 7.9, Eos % (Auto) 0.3, Baso % (Auto) 0.2, Absolute Neuts (auto) 9.2 H, Absolute Lymphs (auto) 1.75, Nucleated RBC % 0 Physical Exam Narrative Patient has history of IVDA, last dose before admission. General: Mild drowsy, lethargy, disoriented to time and place, Cooperative, thin looking HEENT: Atraumatic, PERRLA, EOMI, Normocephalic Oral: No Gingival or Mucosal Lesions/ Ulcerations Neck: Supple, No JVD, Negative Carotid Bruits Lungs: Air entry diminished in bilateral lung bases. No crepitation/rhonchi Cardiovascular: Regular rate, Regular Rhythm, Normal S1, Normal S2, No murmurs Abdomen: Bowel Sounds Present, Soft, Non Tender, Non-Distended : No renal angle tenderness. No suprapubic tenderness. Extremities: Negative track forbes with thickening, induration and hardening of skin over both cubital fossa. No edema, Capillary Refill Less than 3 Seconds Skin: Needle track forbes, superficial thrombophlebitis over cubital region Musculoskeletal: No Tenderness to Palpation of Joints or Extremities Neurological: Cranial nerves II-XII grossly intact, DTR 2+/4 and Symmetrical, Neuro grossly intact Psych/Mental Status: Flat affect. Assessment & Plan Assessment/Plan (1) DKA (diabetic ketoacidosis): QUALIFIERS: Diabetes mellitus complication detail: without coma Diabetes mellitus type: type 1 Qualified Code(s): E10.10 - Type 1 diabetes mellitus with ketoacidosis without coma (2) Acute kidney injury: (3) Hyponatremia: (4) Leukocytosis: QUALIFIERS: Leukocytosis type: unspecified Qualified Code(s): D72.829 - Elevated white blood cell count, unspecified (5) Opiate withdrawal: PLAN: 1. Diabetic ketoacidosis with history of type 1 diabetes mellitus: Patient is being admitted in ICU. Currently on insulin drip. Patient reports as being a type I diabetic but he is not the most reliable historian at this time. He does not take insulin regimen, noncompliant. Patient has not taken insulin for unclear period of time. Patient was treated with IV insulin drip and IV fluid. Discontinue the insulin drip once anion gap is been closed x2. Serum bicarb is still low at 15. 4/5: 1 dose of Humalog insulin and Lantus insulin increased. Most recent glucose 198. Monitor Accu-Cheks and titrate the dose of insulin accordingly. 2. Acute kidney injury most likely prerenal from DKA: Continue IV fluid half-normal saline. Avoid nephrotoxic medications. 4/5: JORGE resolved. 3. Leukocytosis, may be reactive to DKA and opioid withdrawal. No fever. No clinical symptoms and signs of infection. 4/5: Leukocytosis improving. 4. Hyponatremia from severe hyperglycemia: Most recent sodium is 142. Corrected. 4/5: Hypokalemia and hypophosphatemia: IV potassium phosphate ordered. 5. Acute opiate withdrawal with history of chronic IVDA/opioid use: Patient is on phenobarbitone. Patient has been established with a program called [facility] by [facility], where he is from. Consult case liner 6. VTE prophylaxis with enoxaparin 7. COVID-19 vaccination status: Patient is unvaccinated. Active Medications Acetaminophen (Acetaminophen 325 Mg Tablet) 650 mg PO Q6H PRN PRN PRN Reason: Pain Score 1-10/Temp > 100.7 F Buprenorphine HCl (Buprenorphine Hcl 2 Mg Tab.Subl) 0 mg SL Q8H MAYNOR; Taper Stop: 07/15/21 17:07 Clonidine (Clonidine Hcl 0.1 Mg Tablet) 0.1 mg PO Q8H PRN PRN PRN Reason: RESTLESSNESS Dicyclomine HCl (Dicyclomine 10 Mg Capsule) 20 mg PO Q6H PRN PRN PRN Reason: Abdominal Discomfort Enoxaparin Sodium (Enoxaparin 40 Mg/0.4 Ml Syringe) 40 mg SC DAILY [facility] Last Admin: 07/14/21 09:18 Dose: 40 mg Documented by: Gabapentin (Gabapentin 300 Mg Capsule) 300 mg PO Q8H PRN PRN PRN Reason: moderate to severe anxiety Hydroxyzine Pamoate (Hydroxyzine Rosalia 25 Mg Capsule) 25 mg PO Q6H PRN PRN PRN Reason: mild anxiety Dextrose (Dextrose 10%-Water) 250 mls @ 999 mls/hr IV .Q16M PRN; Protocol PRN Reason: Hypoglycemic Protocol Potassium Phosphate 40 mm/ (Sodium Chloride) 513.3333 mls @ 62.5 mls/hr IV X1 ONE Stop: 07/14/21 20:48 Ibuprofen (Ibuprofen 400 Mg Tablet) 400 mg PO Q4H PRN PRN PRN Reason: Pain Score 1-10/Temp > 100.7 F Insulin Human Lispro (Insulin Lispro 100 Unit/Ml Insuln.Pen) 0 unit SC [facility]; Protocol Last Admin: 07/14/21 12:08 Dose: 2 units Documented by: Insulin Human Lispro (Insulin Lispro 100 Unit/Ml Insuln.Pen) 15 unit SC TIDAC [facility] Last Admin: 07/14/21 12:09 Dose: 15 u Documented by: Loperamide HCl (Loperamide 2 Mg Capsule) 2 mg PO Q4H PRN PRN PRN Reason: LOOSE STOOLS Methocarbamol (Methocarbamol 750 Mg Tablet) 1,500 mg PO Q6H PRN PRN PRN Reason: MUSCLE SPASM Nicotine (Nicotine 21 Mg Patch) 21 mg TD DAILY [facility] Last Admin: 07/14/21 09:18 Dose: 21 mg Documented by: Ondansetron HCl (Ondansetron 8 Mg Tablet) 8 mg PO Q8H PRN PRN PRN Reason: NAUSEA Ondansetron HCl (Ondansetron 4 Mg/2 Ml Vial) 4 mg IV Q8H PRN PRN PRN Reason: NAUSEA/VOMITING Last Admin: 07/12/21 20:39 Dose: 4 mg Documented by: Sodium Chloride (0.9% Saline Lock 10 Ml Syringe) 10 - 40 ml IV UD PRN PRN Reason: SALINE FLUSH Trazodone HCl (Trazodone 50 Mg Tablet) 50 mg PO QHS PRN PRN PRN Reason: INSOMNIA Charges/Coding Visit Charges Inpatient E&M: 56826 Subs Hosp L2
[2021-07-14 07:36] VITALS: BP 145/91; PULSE 89; RESP 16; TEMP 36.8; O2SAT 100
[2021-07-14] MEDS: Insulin Lispro 100 UNIT/ML INSULN.PEN SC ×2 (07:48→12:08)
[2021-07-14] MEDS: Insulin Lispro 100 UNIT/ML INSULN.PEN 10 UNIT SC (07:48)
[2021-07-14 07:55] LABS: Bedside Glucose 285 mg/dL (74-106)
[2021-07-14] MEDS: Insulin Glargine-YFGN 100 UNIT/ML Pen 20 UNIT SC ×2 (09:17→21:04)
[2021-07-14] MEDS: Enoxaparin 40 MG/0.4 ML Syringe SC (09:18)
--- NOTE | 2021-07-14 10:54 | ADDICTION ---
Met with pt to complete ASAM, AUDIT, DUDIT and MSE. Pt requested to discuss d/c planning later. This worker will see pt tomorrow for D/c planning.
[2021-07-14 11:16] LABS: Bedside Glucose 198 mg/dL (74-106)
[2021-07-14] MEDS: Insulin Lispro 100 UNIT/ML INSULN.PEN 15 UNIT SC (12:09)
[2021-07-14] MEDS: 0.9% Saline Lock 10 ML Syringe IV (14:52)
[2021-07-14 16:31] LABS: Bedside Glucose 119 mg/dL (74-106)
[2021-07-14 19:34] VITALS: BP 133/57; PULSE 70; RESP 20; TEMP 36.3; O2SAT 100
[2021-07-14] MEDS: hydrOXYzine PAM 25 MG Capsule PO (21:01)
[2021-07-14] MEDS: cloNIDine HCl 0.1 MG Tablet PO (21:01)
[2021-07-14] MEDS: Buprenorphine HCl 2 MG TAB.SUBL SL (21:01)
[2021-07-14] MEDS: Dicyclomine 10 MG Capsule 20 MG PO (21:02)
[2021-07-14] MEDS: traZODone 50 MG Tablet PO (21:02)
[2021-07-14] MEDS: Methocarbamol 750 MG Tablet 1500 MG PO (21:02)
[2021-07-14] MEDS: Ibuprofen 400 MG Tablet PO (21:02)
[2021-07-14 21:46] LABS: Bedside Glucose 147 mg/dL (74-106)
[2021-07-15 03:12] VITALS: BP 155/76; PULSE 75; RESP 20; TEMP 36.8; O2SAT 99
[2021-07-15] MEDS: Ondansetron 8 MG Tablet PO (03:22)
[2021-07-15] MEDS: hydrOXYzine PAM 25 MG Capsule PO ×3 (03:22→21:03)
[2021-07-15] MEDS: Buprenorphine HCl 2 MG TAB.SUBL SL ×3 (06:23→21:03)
[2021-07-15 07:11] LABS: Anion Gap 6 (5-15); BUN 18 mg/dL (7-18); BUN/Creat Ratio 33.6 RATIO (10-20); Calcium,Total 8.8 mg/dL (8.5-10.1); Chloride 117 mmol/L (98-107); Creatinine, Serum 0.54 mg/dL (0.70-1.30); EST Glomerular Filtration Rate 177 mL/min (>60); Est Glom Filt Rate - Afr Amer 214 mL/min (>60); Estimated Creatinine Clearance 138.02 ml/min; Glucose 109 mg/dL (74-106); Potassium 2.9 mmol/L (3.5-5.1); Sodium Level 144 mmol/L (136-145)
[2021-07-15 08:20] VITALS: BP 149/78; PULSE 71; RESP 18; TEMP 36.8; O2SAT 98
--- NOTE | 2021-07-15 08:21 | NURSING ---
pt reports that he is seeing a white milky thing in my room and then stuff flying by in the air, it's weird to explain denies it being frightful. i hear music sometimes
[2021-07-15] MEDS: Methocarbamol 750 MG Tablet 1500 MG PO (08:35)
[2021-07-15] MEDS: Dicyclomine 10 MG Capsule 20 MG PO ×2 (08:35→21:02)
[2021-07-15] MEDS: Enoxaparin 40 MG/0.4 ML Syringe SC (08:35)
[2021-07-15] MEDS: Gabapentin 300 MG Capsule PO (08:44)
[2021-07-15] MEDS: Insulin Glargine-YFGN 100 UNIT/ML Pen 10 UNIT SC ×2 (08:45→21:08)
--- NOTE | 2021-07-15 10:57 | ADDICTION ---
This insurance underwriter met with PT to conduct ASAM, MSE, AUDIT assessments and to plan for d/c. PT A+Ox4 and participated actively. All assessments completed and placed in PT's chart. PT plans to f/u with [facility] for follow-up treatment services. He will need to be able to walk on his own prior to admission. Once approved, [facility] will provide transportation post d/c from [facility].
[2021-07-15] MEDS: Insulin Lispro 100 UNIT/ML INSULN.PEN SC ×2 (11:39→21:08)
[2021-07-15] MEDS: Insulin Lispro 100 UNIT/ML INSULN.PEN 15 UNIT SC (11:40)
--- NOTE | 2021-07-15 11:55 | PCM.PN.HOSP ---
Subjective Subjective Seen and examined. Discussed with nursing staff. The patient having auditory and visual hallucinations. His oral intake is also not good. Blood sugar fluctuates because of decreased oral intake. Wide swing in glucose, in the morning it was 119 Objective Data Objective Data Vital Signs: Vital Signs Temp Pulse Resp BP Pulse Ox 98.2 F 71 18 149/78 H 98 07/15/21 08:20 07/15/21 08:20 07/15/21 08:20 07/15/21 08:20 07/15/21 08:20 Oxygen Delivery Method Room Air Weight: 123 lb 3.814 oz Body Mass Index (BMI) 17.2 Intake & Output: Intake and Output for Last 24 Hours 07/13/21 07/14/21 07/15/21 23:59 23:59 23:59 Intake Total 3969.66 / 3969.66 1000 / 1513.3333 513.3333 / 513.3333 Output Total 800 / 800 350 / 350 Balance 3169.66 / 3169.66 650 / 1163.3333 513.3333 / 513.3333 Lab / Micro Data Result Diagrams: 07/14/21 05:30 07/15/21 06:40 Labs: Laboratory Results - last 24 hr 07/14/21 16:14: POC Glucose 119 H 07/14/21 20:59: POC Glucose 147 H 07/15/21 06:40: Sodium 144, Potassium 2.9 L, Chloride 117 H, Carbon Dioxide 21.0, Anion Gap 6, BUN 18, Creatinine 0.54 L, Estim Creat Clear Calc 138.02, Est GFR (MDRD) Af Amer 214, Est GFR (MDRD) Non-Af 177, BUN/Creatinine Ratio 33.6 H, Glucose 109 H, Calcium 8.8 Physical Exam Narrative Patient has history of IVDA, last dose before admission. General: Mild lethargy. Awake but not very alert or spontaneous. HEENT: Atraumatic, PERRLA, EOMI, Normocephalic Oral: No Gingival or Mucosal Lesions/ Ulcerations Neck: Supple, No JVD, Negative Carotid Bruits Lungs: Air entry diminished in bilateral lung bases. No crepitation/rhonchi Cardiovascular: Regular rate, Regular Rhythm, Normal S1, Normal S2, No murmurs Abdomen: Bowel Sounds Present, Soft, Non Tender, Non-Distended : No renal angle tenderness. No suprapubic tenderness. Extremities: Negative track forbes with thickening, induration and hardening of skin over both cubital fossa. No edema, Capillary Refill Less than 3 Seconds Skin: Needle track forbes, superficial thrombophlebitis over cubital region Musculoskeletal: No Tenderness to Palpation of Joints or Extremities Neurological: Cranial nerves II-XII grossly intact, DTR 2+/4 and Symmetrical, Neuro grossly intact Psych/Mental Status: Flat affect. Assessment & Plan Assessment/Plan (1) DKA (diabetic ketoacidosis): QUALIFIERS: Diabetes mellitus type: type 1 Diabetes mellitus complication detail: without coma Qualified Code(s): E10.10 - Type 1 diabetes mellitus with ketoacidosis without coma (2) Acute kidney injury: (3) Hyponatremia: (4) Leukocytosis: QUALIFIERS: Leukocytosis type: unspecified Qualified Code(s): D72.829 - Elevated white blood cell count, unspecified (5) Opiate withdrawal: PLAN: 1. Diabetic ketoacidosis with history of type 1 diabetes mellitus: Patient is being admitted in ICU. Currently on insulin drip. Patient reports as being a type I diabetic but he is not the most reliable historian at this time. He does not take insulin regimen, noncompliant. Patient has not taken insulin for unclear period of time. Patient was treated with IV insulin drip and IV fluid. Discontinue the insulin drip once anion gap is been closed x2. Serum bicarb is still low at 15. 4/5: 1 dose of Humalog insulin and Lantus insulin increased. Most recent glucose 198. Monitor Accu-Cheks and titrate the dose of insulin accordingly. 4/6: Wide fluctuation glucose due to poor oral intake. Lantus and Humalog insulin decreased 2. Acute kidney injury most likely prerenal from DKA: Continue IV fluid half-normal saline. Avoid nephrotoxic medications. 4/5: JORGE resolved. 3. Leukocytosis, may be reactive to DKA and opioid withdrawal. No fever. No clinical symptoms and signs of infection. 4/5: Leukocytosis improving. 4. Hyponatremia from severe hyperglycemia: Most recent sodium is 142. Corrected. 4/5: Hypokalemia and hypophosphatemia: IV potassium phosphate ordered. 4/6: Sodium 144, potassium 2.9, hypokalemia. IV potassium replaced. Monitor electrolytes. 5. Acute opiate withdrawal with history of chronic IVDA/opioid use: Patient is on phenobarbitone. Patient has been established with a program called [facility] by [facility], where he is from. Consult child welfare caseworker 07/15: With continued symptoms of hallucination, aches and pain, restlessness and anxiety. Cina score 7. 6. VTE prophylaxis with enoxaparin 7. COVID-19 vaccination status: Patient is unvaccinated. Charges/Coding Visit Charges Inpatient E&M: 31955 Subs Hosp L2
[2021-07-15 13:13] VITALS: BP 121/78; PULSE 83; RESP 16; TEMP 36.6; O2SAT 98
[2021-07-15] MEDS: 0.9% Saline Lock 10 ML Syringe IV (13:18)
[2021-07-15 14:19] VITALS: O2SAT 98
[2021-07-15 16:50] VITALS: BP 153/82; PULSE 74; RESP 16; TEMP 37.3; O2SAT 98
[2021-07-15 16:50] LABS: Bedside Glucose 76 mg/dL (74-106)
[2021-07-15 19:01] LABS: Bedside Glucose 190 mg/dL (74-106)
[2021-07-15 21:00] VITALS: BP 148/70; PULSE 66; RESP 20; TEMP 37.1; O2SAT 100
[2021-07-15] MEDS: traZODone 50 MG Tablet PO (21:03)
[2021-07-15 21:20] LABS: Bedside Glucose 186 mg/dL (74-106)
[2021-07-16 00:06] LABS: Bedside Glucose 256 mg/dL (74-106)
[2021-07-16 04:32] VITALS: BP 137/63; PULSE 71; RESP 18; TEMP 36.7; O2SAT 100
[2021-07-16] MEDS: 0.9% Saline Lock 10 ML Syringe IV (04:33)
[2021-07-16] MEDS: Buprenorphine HCl 2 MG TAB.SUBL SL ×3 (04:35→21:35)
[2021-07-16 06:50] LABS: Anion Gap 5 (5-15); BUN 13 mg/dL (7-18); BUN/Creat Ratio 29.7 RATIO (10-20); Calcium,Total 8.7 mg/dL (8.5-10.1); Chloride 113 mmol/L (98-107); Creatinine, Serum 0.44 mg/dL (0.70-1.30); EST Glomerular Filtration Rate 223 mL/min (>60); Est Glom Filt Rate - Afr Amer 270 mL/min (>60); Estimated Creatinine Clearance 167.27 ml/min; Glucose 184 mg/dL (74-106); Magnesium 1.9 mg/dL (1.6-2.6); Phosphorus 3.2 mg/dL (2.5-4.9); Potassium 3.6 mmol/L (3.5-5.1); Sodium Level 141 mmol/L (136-145)
[2021-07-16 08:08] VITALS: BP 139/62; PULSE 62; RESP 18; TEMP 36.4; O2SAT 100
[2021-07-16] MEDS: Enoxaparin 40 MG/0.4 ML Syringe SC (08:19)
[2021-07-16] MEDS: Insulin Lispro 100 UNIT/ML INSULN.PEN SC ×3 (08:19→21:36)
[2021-07-16] MEDS: hydrOXYzine PAM 25 MG Capsule PO ×2 (08:19→21:35)
[2021-07-16] MEDS: Ibuprofen 400 MG Tablet PO (08:19)
[2021-07-16] MEDS: Insulin Lispro 100 UNIT/ML INSULN.PEN 8 UNIT SC ×2 (08:20→12:00)
[2021-07-16] MEDS: Insulin Glargine-YFGN 100 UNIT/ML Pen 10 UNIT SC (08:22)
[2021-07-16 08:36] LABS: Bedside Glucose 208 mg/dL (74-106)
[2021-07-16 11:21] LABS: Bedside Glucose 215 mg/dL (74-106)
--- NOTE | 2021-07-16 14:10 | PN.HOSP_ITS ---
Subjective Subjective Patient has improvement in symptoms. Still has mild hallucinations. Objective Data Objective Data Vital Signs: Vital Signs Temp Pulse Resp BP Pulse Ox 97.6 F L 62 18 139/62 H 100 07/16/21 08:08 07/16/21 08:08 07/16/21 08:08 07/16/21 08:08 07/16/21 08:08 Oxygen Delivery Method Room Air Weight: 121 lb 11.123 oz Body Mass Index (BMI) 17.2 Intake & Output: Intake and Output for Last 24 Hours 07/14/21 07/15/21 07/16/21 23:59 23:59 23:59 Intake Total 1000 / 1513.3333 1026.6666 / 1026.6666 Output Total 350 / 350 875 / 875 Balance 650 / 1163.3333 1026.6666 / 1026.6666 -875 / -875 Lab / Micro Data Result Diagrams: 07/14/21 05:30 07/16/21 06:10 Labs: Laboratory Results - last 24 hr 07/15/21 11:36: POC Glucose 256 H 07/15/21 16:43: POC Glucose 76 07/15/21 18:57: POC Glucose 190 H 07/15/21 20:58: POC Glucose 186 H 07/16/21 06:10: Sodium 141, Potassium 3.6, Chloride 113 H, Carbon Dioxide 23.0, Anion Gap 5, BUN 13, Creatinine 0.44 L, Estim Creat Clear Calc 167.27, Est GFR (MDRD) Af Amer 270, Est GFR (MDRD) Non-Af 223, BUN/Creatinine Ratio 29.7 H, Glucose 184 H, Calcium 8.7, Phosphorus 3.2, Magnesium 1.9 07/16/21 08:02: POC Glucose 208 H 07/16/21 11:13: POC Glucose 215 H Micro: Microbiology 07/13/21 23:00 Urine, Catheterized Urine Culture - Final Culture exhibits no growth. Physical Exam Narrative Patient has history of IVDA, last dose before admission. General: Awake, alert and oriented x3. HEENT: Atraumatic, PERRLA, EOMI, Normocephalic. Subcutaneous loss of temporal facial fat. Oral: No Gingival or Mucosal Lesions/ Ulcerations Neck: Supple, No JVD, Negative Carotid Bruits Lungs: Air entry diminished in bilateral lung bases. No crepitation/rhonchi Cardiovascular: Regular rate, Regular Rhythm, Normal S1, Normal S2, No murmurs Abdomen: Bowel Sounds Present, Soft, Non Tender, Non-Distended : No renal angle tenderness. No suprapubic tenderness. Extremities: Negative track forbes with thickening, induration and hardening of skin over both cubital fossa. No edema, Capillary Refill Less than 3 Seconds Skin: Needle track forbes, superficial thrombophlebitis over cubital region Musculoskeletal: No Tenderness to Palpation of Joints or Extremities. Moderate atrophy of muscles of extremities Neurological: Cranial nerves II-XII grossly intact, DTR 2+/4 and Symmetrical, Neuro grossly intact Psych/Mental Status: Flat affect. Assessment & Plan Assessment/Plan (1) DKA (diabetic ketoacidosis): QUALIFIERS: Diabetes mellitus type: type 1 Diabetes mellitus complication detail: without coma Qualified Code(s): E10.10 - Type 1 diabetes mellitus with ketoacidosis without coma (2) Acute kidney injury: (3) Hyponatremia: (4) Leukocytosis: QUALIFIERS: Leukocytosis type: unspecified Qualified Code(s): D72.829 - Elevated white blood cell count, unspecified (5) Opiate withdrawal: PLAN: 1. Diabetic ketoacidosis with history of type 1 diabetes mellitus: Patient is being admitted in ICU. Currently on insulin drip. Patient reports as being a type I diabetic but he is not the most reliable historian at this time. He does not take insulin regimen, noncompliant. Patient has not taken insulin for unclear period of time. Patient was treated with IV insulin drip and IV fluid. Discontinue the insulin drip once anion gap is been closed x2. Serum bicarb is still low at 15. 4/5: 1 dose of Humalog insulin and Lantus insulin increased. Most recent glucose 198. Monitor Accu-Cheks and titrate the dose of insulin accordingly. /6: Wide fluctuation glucose due to poor oral intake. Lantus and Humalog insulin decreased 07/16: Glucose in the 200. Lantus dose increased to 12 units twice daily 2. Acute kidney injury most likely prerenal from DKA: Continue IV fluid half- normal saline. Avoid nephrotoxic medications. 4/5: JORGE resolved. 3. Leukocytosis, may be reactive to DKA and opioid withdrawal. No fever. No clinical symptoms and signs of infection. 4/5: Leukocytosis improving. 4. Hyponatremia from severe hyperglycemia: Most recent sodium is 142. Corrected. 07/14: Hypokalemia and hypophosphatemia: IV potassium phosphate ordered. 07/15: Sodium 144, potassium 2.9, hypokalemia. IV potassium replaced. Monitor electrolytes. 5. Acute opiate withdrawal with history of chronic IVDA/opioid use: Patient is on phenobarbitone. Patient has been established with a program called [facility] by [facility], [place] is from. Consult immigration case manager 07/15: With continued symptoms of hallucination, aches and pain, restlessness and anxiety. Cina score 7. 07/16: Discussed with the nursing staff. Evaluated by 180 immigration case manager. Plan for inpatient drug rehab possible discharge on 07/17 on 07/18. 6. VTE prophylaxis with enoxaparin 7. COVID-19 vaccination status: Patient is unvaccinated. 8. Severe protein calorie malnutrition. Dietitian consulted Charges/Coding Visit Charges Inpatient E&M: 60368 Subs Hosp L2
[2021-07-16 14:22] VITALS: BP 135/76; PULSE 74; RESP 16; TEMP 36.7; O2SAT 100
[2021-07-16 16:40] LABS: Bedside Glucose 131 mg/dL (74-106)
[2021-07-16] MEDS: Dicyclomine 10 MG Capsule 20 MG PO (20:01)
[2021-07-16] MEDS: Ondansetron 8 MG Tablet PO (20:01)
[2021-07-16 20:05] VITALS: BP 133/77; PULSE 70; RESP 18; TEMP 37; O2SAT 98
[2021-07-16] MEDS: traZODone 50 MG Tablet PO (21:35)
[2021-07-16] MEDS: Insulin Glargine-YFGN 100 UNIT/ML Pen 12 UNIT SC (21:37)
[2021-07-16 21:46] LABS: Bedside Glucose 249 mg/dL (74-106)
[2021-07-17 02:00] VITALS: BP 140/71; PULSE 67; RESP 18; TEMP 36.6; O2SAT 99
[2021-07-17] MEDS: Ondansetron 8 MG Tablet PO (05:51)
--- NOTE | 2021-07-17 06:36 | NURSING ---
Pt refused AM labs - states he is leaving today. Dr Redding made aware.
[2021-07-17] MEDS: Insulin Lispro 100 UNIT/ML INSULN.PEN 8 UNIT SC ×2 (07:50→11:26)
[2021-07-17] MEDS: Insulin Lispro 100 UNIT/ML INSULN.PEN SC ×2 (07:51→11:26)
[2021-07-17 07:55] LABS: Bedside Glucose 348 mg/dL (74-106)
[2021-07-17 08:00] VITALS: BP 126/72; PULSE 69; RESP 16; TEMP 36.7; O2SAT 100
--- NOTE | 2021-07-17 08:19 | PCM.DC ---
Discharge Instructions Diet Discharge Diet: No restrictions Activity Discharge Activity: May Not Drive Weight Bearing Status: Weight bearing as tolerated Dressing / Incision Call your doctor if you observe: Fever of 101 or Higher, Coldness, Increased Pain, Numbness or Tingling, Change in Color, Inability to urinate, Inability to have a bowel movement, Shortness of breath, Dizziness, Fainting spells, Swelling in the ankles, Chest pain, Prolonged hiccupping, Increased palpitations (irregular heartbeat), Calf discomfort and Uncontrolled pain Follow Up Care Test Results: Test results from this visit will be discussed in further detail at your follow-up appointment, if applicable. Discharge Plan Admission Admit Date/Time: 07/12/21 16:40 Primary Reason for Your Visit: DKA, Acute opiate withdrawal Attending Provider: Denys Howard Primary Care Provider: Florina Fraser Primary Instructions Additional Instructions / Restrictions: Patient discharged on glucometer. Advised Accu-Chek before meals and at bedtime and cover with scheduled Humalog insulin Discharge to inpatient drug rehab Discharge Orders/Prescriptions Prescriptions: New nicotine 21 mg/24 hr Patch 24 Hour 21 mg transdermal DAILY Qty: 28 RF: 0 insulin lispro [Humalog KwikPen Insulin] 100 unit/mL Insulin Pen 8 unit subcut TIDAC Qty: 15 RF: 0 insulin lispro [Humalog KwikPen Insulin] 100 unit/mL Insulin Pen See Protocol unit subcut ACHS Qty: 0 RF: 0 insulin glargine-yfgn 100 unit/mL (3 mL) Insulin Pen 15 unit subcut BID Qty: 15 RF: 0 metformin 500 mg tablet 500 mg PO DAILY Qty: 60 RF: 0 Other Ambulatory Orders: Glucometer (Routine) Location: None Selected Ordered By: Dr. Denys Howard Referrals / Follow Up: Care Physician,Florina Primary [Primary Care Provider] - Within 1 Week (To monitor glucose) Disposition Disposition (needs filled in before D/C Order can be placed): Home, Self Care
--- NOTE | 2021-07-17 08:45 | DS.PCM_ITS ---
Providers Date of Admission: 07/12/21 Date of Discharge: 07/17/21 Primary Care Physician: No Primary Care Phys Reason For Visit: DKA Diagnosis Discharge Diagnosis (1) DKA (diabetic ketoacidosis): Status: Acute Code(s): E11.10 - Type 2 diabetes mellitus with ketoacidosis without coma Qualifiers: Diabetes mellitus type: type 1 Diabetes mellitus complication detail: without coma Qualified Code(s): E10.10 - Type 1 diabetes mellitus with ketoacidosis without coma (2) Acute kidney injury: Status: Acute Code(s): N17.9 - Acute kidney failure, unspecified (3) Hyponatremia: Status: Acute Code(s): E87.1 - Hypo-osmolality and hyponatremia (4) Leukocytosis: Status: Acute Code(s): D72.829 - Elevated white blood cell count, unspecified Qualifiers: Leukocytosis type: unspecified Qualified Code(s): D72.829 - Elevated white blood cell count, unspecified (5) Opiate withdrawal: Status: Acute Code(s): F11.23 - Opioid dependence with withdrawal Medications at Discharge Home Medications insulin glargine-yfgn 15 unit SUBCUT BID #15 ml 07/17/21 insulin lispro [Humalog KwikPen Insulin] 8 unit SUBCUT TIDAC #15 ml 07/17/21 insulin lispro [Humalog KwikPen Insulin] See Protocol SUBCUT ACHS #0 ml 07/17/21 metformin 500 mg PO DAILY #60 tab 07/17/21 nicotine 21 mg TRANSDERMAL DAILY #28 ea 07/17/21 Hospital Course Summary of Care Provided Hospital Course: Patient is 45-year-old male was admitted after he was found unresponsive. In ED patient was found to be in DKA with glucose 258, anion gap 33, bicarb 7. Creatinine 2.71, sodium 118. Patient had right CVC catheter inserted due to poor peripheral lines with history of IVDA. 1. Diabetic ketoacidosis with history of type 2 diabetes mellitus: Patient is being admitted in ICU. Was managed on the line of DKA with IV fluid volume resuscitation and insulin drip. Insulin drip was discontinued once anion gap is been closed x2. During hospital course patient had wide fluctuation of glucose and was managed by titration of Humalog and Lantus insulin. 07/17/2021: Right subclavian CVC catheter was removed with no hematoma or bleeding. I confirmed with him that he has type 2 diabetes mellitus, diagnosed in 2016 at the age of 40 when he is fully alert and awake on the day of discharge. He further said that he was on Metformin, Novolin 70/30 insulin and Lantus in the past. A prescription was given for Humalog insulin and Lantus insulin with refill. Metformin was also prescribed. Advised follow-up PCP in 1 week 2. Acute kidney injury most likely prerenal from DKA: Continue IV fluid half- normal saline. Avoid nephrotoxic medications. 4/5: JORGE resolved. 3. Leukocytosis, may be reactive to DKA and opioid withdrawal. No fever. No clinical symptoms and signs of infection. 07/14: Leukocytosis improved 4. Hyponatremia from severe hyperglycemia: Most recent sodium is 142. Corrected. 07/14: Hypokalemia and hypophosphatemia: IV potassium phosphate ordered. 07/15: Sodium 144, potassium 2.9, hypokalemia. IV potassium replaced. Monitor electrolytes. 07/17: Hyponatremia resolved. 5. Acute opiate withdrawal with history of chronic IVDA/opioid use: Patient is on phenobarbitone. Patient has been established with a program called [facility] by [facility], [place] he is from. Consult family caseworker 07/15: With continued symptoms of hallucination, aches and pain, restlessness and anxiety. Cina score 7. 4/7: Discussed with the nursing staff. Evaluated by 180 family caseworker. 07/17: Patient is being discharged to inpatient drug rehab. 6. VTE prophylaxis with enoxaparin 7. COVID-19 vaccination status: Patient is unvaccinated. 8. Severe protein calorie malnutrition. Dietitian consulted Discharge medication reconciliation done. Discharge follow-up instructions completed. Discharge process discussed with the patient and all questions were answered to patient's satisfaction. Total time spent, exact 35 minutes on discharge meds reconciliation, examination, coordination of care with nurses and ancillary staff, review of imaging and blood test and discussion with the patient on follow-up instructions. Physical Exam Narrative Seen and examined on the day of discharge. Patient had right subclavian CVC catheter in ED which is removed today on 07/17. Patient is hard IV stick due to history of IVDA. He stated he was diagnosed with diabetes mellitus type 2 in 2016 at the age of [age] years old Patient has history of IVDA, last dose before admission. General: Awake, alert and oriented x3. HEENT: Atraumatic, PERRLA, EOMI, Normocephalic. Subcutaneous loss of temporal facial fat. Oral: No Gingival or Mucosal Lesions/ Ulcerations Neck: Supple, No JVD, Negative Carotid Bruits. No hematoma or bleeding at the site of right CVC catheter removal Lungs: Air entry diminished in bilateral lung bases. No crepitation/rhonchi Cardiovascular: Regular rate, Regular Rhythm, Normal S1, Normal S2, No murmurs Abdomen: Bowel Sounds Present, Soft, Non Tender, Non-Distended : No renal angle tenderness. No suprapubic tenderness. Extremities: Negative track forbes with thickening, woody induration and hardening of skin over both cubital fossa. No edema, Capillary Refill Less than 3 Seconds Skin: Needle track forbes, superficial thrombophlebitis over cubital region Musculoskeletal: No Tenderness to Palpation of Joints or Extremities. Moderate atrophy of muscles of extremities Neurological: Cranial nerves II-XII grossly intact, DTR 2+/4 and Symmetrical, Neuro grossly intact Psych/Mental Status: Flat affect. Medical Records Data Medical Nutrition Assessment Dietitian: Malnutrition Criteria Met Start: 07/16/21 16:20 Freq: Status: Active Protocol: Document 07/16/21 16:20 RMA (Rec: 07/16/21 16:21 RMA [id number]) Nutrition Malnutrition Evidence of Malnutrition Exists Yes Malnutrition (severe): Social/Behavioral/ Environmental Evidenced By Suboptimal Energy Intake ( Severe),Weight Loss (Severe), Physical Changes (Moderate), Physical Changes (Severe) Intake Problem Inadequate Oral Intake Etiology related to poor appetite/drug use Signs/Symptoms as evidenced by PO on average less than 50% meals Status Active Problem Clinical Problem Acute Disease or Injury Related Malnutrition Etiology Severe protein-calorie malnutrition in the context of social circumstance related to drug abuse and inadequate oral intake Signs/Symptoms ~19% wt loss x 6 months, BMI 19.1, moderate to severe fat/ muscle loss in face (temporal / orbital / buccal areas), arms and legs in addition to overall inadequate oral intake meeting less than 50% estimated nutrition needs x past 4-6 months Status Active Problem Recommendation Dietitian Recommendations/Changes Will continue Carbohydrate- Controlled diet as ordered. Will try 120 ml strawberry glucerna shake TID w/ meals as tolerated. Will provide extra 1-2 oz pro/ meat Q meal. Weight / BMI Weight Weight: 121 lb 4.068 oz Body Mass Index (BMI) 17.2 ABG / Lab / Microbiology Data Result Diagrams: 07/14/21 05:30 07/16/21 06:10 Laboratory: Laboratory Results - last 24 hr 07/16/21 11:13: POC Glucose 215 H 07/16/21 16:37: POC Glucose 131 H 07/16/21 21:33: POC Glucose 249 H 07/17/21 07:47: POC Glucose 348 H Microbiology: Microbiology 07/13/21 23:00 Urine, Catheterized Urine Culture - Final Culture exhibits no growth. D/C Instructions Discharge Diet: No restrictions Weight Bearing Status: Weight bearing as tolerated Call your doctor if you observe: Fever of 101 or Higher, Coldness, Increased Pain, Numbness or Tingling, Change in Color, Inability to urinate, Inability to have a bowel movement, Shortness of breath, Dizziness, Fainting spells, Swelling in the ankles, Chest pain, Prolonged hiccupping, Increased palpitations (irregular heartbeat), Calf discomfort and Uncontrolled pain Meaningful Use Info Meaningful Use Diagnoses (Choose all that apply): None applicable Discharge Plan Admission Admit Date/Time: 07/12/21 16:40 Primary Reason for Your Visit: DKA, Acute opiate withdrawal Attending Provider: Denys Howard Primary Care Provider: Care Physician,Florina Primary Instructions Additional Instructions / Restrictions: Patient discharged on glucometer. Advised Accu-Chek before meals and at bedtime and cover with scheduled Humalog insulin Discharge to inpatient drug rehab Discharge Orders/Prescriptions Prescriptions: New nicotine 21 mg/24 hr Patch 24 Hour 21 mg transdermal DAILY Qty: 28 RF: 0 insulin lispro [Humalog KwikPen Insulin] 100 unit/mL Insulin Pen 8 unit subcut TIDAC Qty: 15 RF: 0 insulin lispro [Humalog KwikPen Insulin] 100 unit/mL Insulin Pen See Protocol unit subcut ACHS Qty: 0 RF: 0 insulin glargine-yfgn 100 unit/mL (3 mL) Insulin Pen 15 unit subcut BID Qty: 15 RF: 0 metformin 500 mg tablet 500 mg PO DAILY Qty: 60 RF: 0 Other Ambulatory Orders: Glucometer (Routine) Location: None Selected Ordered By: Dr. Denys Howard Referrals / Follow Up: Care Physician,No Primary [Primary Care Provider] - Within 1 Week (To monitor glucose) Disposition Disposition (needs filled in before D/C Order can be placed): Home, Self Care Charges/Coding Visit Charges Inpatient E&M: 35331 Disch Hosp
[2021-07-17] MEDS: Buprenorphine HCl 2 MG TAB.SUBL SL (08:58)
[2021-07-17] MEDS: Enoxaparin 40 MG/0.4 ML Syringe SC (08:59)
[2021-07-17] MEDS: Insulin Glargine-YFGN 100 UNIT/ML Pen 12 UNIT SC (09:00)
[2021-07-17] MEDS: hydrOXYzine PAM 25 MG Capsule PO (09:05)
[2021-07-17 11:31] LABS: Bedside Glucose 218 mg/dL (74-106)
--- NOTE | 2021-07-17 12:20 | NURSING ---
pt called out and requesting [facility] papers because wants out of here. [employer] operator in and pickup time supposedly in 10min per [facility] personel. pt stated, ill wait 10min but if they arent here i want my papers because im leaving with or without them. pt voiced that needs to go smoke again. ruben from [facility] in to see pt and offer guidance
--- NOTE | 2021-07-17 14:36 | CASEMGMT ---
[facility] in [place] as a PA was faxed for meds sent today. Pt dc'd to residential facility. Spoke with pt nurse who states rx were printed to go with pt to facility and facility will administer meds. Spoke with Kim and asked her to cancel meds sent to them for this date due to this.
== END 2021-07-17 12:55 | DRG 420 ==
LOC: ED 16:25 → ICU 16:52 → MS3 07-13 20:45
PROVIDERS: Nurse Practitioner; Emergency Provider Emergency Medicine; Visit Provider Internal Medicine
DX: E11.10 Type 2 diabetes mellitus with ketoacidosis without coma (principal); E43 Unspecified severe protein-calorie malnutrition; N17.9 Acute kidney failure, unspecified; E83.39 Other disorders of phosphorus metabolism; E11.65 Type 2 diabetes mellitus with hyperglycemia; Z79.4 Long term (current) use of insulin; F11.23 Opioid dependence with withdrawal; E86.0 Dehydration; E87.6 Hypokalemia; E87.1 Hypo-osmolality and hyponatremia; F17.210 Nicotine dependence, cigarettes, uncomplicated; Z28.310 Unvaccinated for COVID-19; Z91.14 Patient's other noncompliance with medication regimen; Z68.1 Body mass index [BMI] 19.9 or less, adult
CPT/HCPCS: 36415; 71045; 80048; 80307; 81001; 82009; 82803; 82947; 82962; 83605; 83735; 84100; 85025; 87086; 93005; 97162; 97165; 97530; 97535; 97803; 99284; 99406; J7030; J7040; A4216; J2405